=== PATIENT | male | born 1985 | race Caucasian/White ===

== ENCOUNTER 2019-01-11 11:28 | Emergency (ER) | payer OTHER, MEDICAID ==
[~2019-01-11] VITALS: Ht 165.1 cm; Wt 73.9 kg
[2019-01-11 11:37] VITALS: BP 135/71
[2019-01-11] MEDS ORDERED: HYDROCODONE-AP1 EAC6 PO (11:50)
[2019-01-11] MEDS ORDERED: FLEXERIL PO (11:50)
== END 2019-01-11 11:55 | disposition home or self-care (01) ==
LOC: M.ERS 11:28
DX: M54.5 Low back pain (principal); F17.200 Nicotine dependence, unspecified, uncomplicated

== ENCOUNTER 2019-03-20 15:57 | Emergency (ER) | payer OTHER ==
[~2019-03-20] VITALS: Ht 165.1 cm; Wt 72.6 kg
[~2019-03-20 15:57] MED LIST: FLEXERIL PO; HYDROCODONE-AP1 EAC6 PO
[2019-03-20] MEDS ORDERED: LIORESAL 10 MG10 MG PO (16:08)
[2019-03-20] MEDS ORDERED: CLINDAMYCIN HC300 MG PO (16:16)
[2019-03-20] MEDS ORDERED: BACTRIM DS TAB1 EACH PO (16:19)
[2019-03-20] MEDS ORDERED: NORCO 5-325 TA1 EACH PO (16:27)
[2019-03-20 16:29] VITALS: BP 144/86
== END 2019-03-20 16:30 | disposition home or self-care (01) ==
LOC: M.ERS 15:57
DX: L03.116 Cellulitis of left lower limb (principal)

== ENCOUNTER 2019-11-10 10:17 | Emergency (ER) | payer OTHER, MEDICAID ==
[~2019-11-10] VITALS: Ht 167.6 cm; Wt 63.5 kg
[~2019-11-10 10:17] MED LIST changes: +BACTRIM DS TAB1 EACH PO; +CLINDAMYCIN HC300 MG PO; +LIORESAL 10 MG10 MG PO; +NORCO 5-325 TA1 EACH PO
[2019-11-10 11:05] LABS: ABSOLUTE EOSINOPHILS 0.1 thou/uL (0.0-0.7); ABSOLUTE LYMPHOCYTES 2.2 thou/uL (0.8-5.3); ABSOLUTE MONOCYTES 0.5 thou/uL (0.0-1.2); ABSOLUTE NEUTROPHILS 4.1 thou/uL (1.6-8.1); BASOPHILS 0.6 %; EOSINOPHILS 0.9 %; HEMATOCRIT 44.8 % (42.0-52.0); HEMOGLOBIN 15.7 gm/dL (14.0-18.0); LYMPHOCYTES 31.4 %; MCH 30.3 pg (26.0-34.0); MCHC 35.1 g/dL (28.0-37.0); MCV 86.2 fL (80.0-100.0); MONOCYTES 6.9 %; MPV 9.3 fl. (7.2-11.1); NUCLEATED RBCS 0 /100WBC; PLATELET COUNT* 195 thou/uL (150-400); POLYS 60.2 %; RDW-CV 13.6 % (10.5-14.5); WBC 6.9 thou/uL (4.0-11.0)
[2019-11-10 11:16] LABS: CALCIUM 8.9 mg/dL (8.5-10.1); POTASSIUM 3.6 mmol/L (3.5-5.1)
[2019-11-10 11:29] LABS: TOTAL BILIRUBIN 0.6 mg/dL (<0.1-1.0); TOTAL PROTEIN 7.9 g/dL (6.4-8.2)
[2019-11-10 11:49] LABS: ACETAMINOPHEN < 2 ug/mL (10-30); ALCOHOL < 10 mg/dL (<10); SALICYLATE < 2.8 mg/dL (2.8-20.0)
[2019-11-10 13:25] LABS: URINE BILIRUBIN NEGATIVE (Negative); URINE BLOOD NEGATIVE (Negative); URINE CLARITY CLEAR; URINE COLOR YELLOW; URINE GLUCOSE-RANDOM NEGATIVE (Negative); URINE KETONES NEGATIVE (Negative); URINE LEUKOCYTES-REFLEX NEGATIVE (Negative); URINE NITRITE-REFLEX NEGATIVE (Negative); URINE PROTEIN NEGATIVE (Negative)
[2019-11-10 13:35] LABS: AMP/METHAMP POSITIVE (Negative); BARBITURATES Negative (Negative); BENZODIAZEPINES Negative (Negative); COCAINE Negative (Negative); METHADONE Negative (Negative); OPIATES Negative (Negative); PCP Negative (Negative); THC Negative (Negative)
[2019-11-10 13:52] VITALS: BP 155/97
== END 2019-11-10 13:52 | disposition home or self-care (01) ==
LOC: M.ERS 10:17
PROVIDERS: Nurse Practitioner Family
DX: F15.10 Other stimulant abuse, uncomplicated (principal); Z86.14 Personal history of Methicillin resistant Staphylococcus aureus infection